=== PATIENT | female | born 1955 | race Caucasian/White ===

== ENCOUNTER 2016-12-15 15:31 | Emergency (ER) | payer OTHER ==
[~2016-12-15] VITALS: Ht 162.6 cm; Wt 59.0 kg
--- NOTE | 2016-12-15 16:44 | RADIOLOGY REPORT ---
EXAMINATION: XR ANKLE, LEFT CLINICAL INFORMATION: Fall, pain COMPARISON: None TECHNIQUE: AP, lateral, and mortise views of the left ankle. FINDINGS: There is an acute oblique nondisplaced fracture of the distal fibula. Acute transverse nondisplaced fracture of the medial malleolus also present. There is mild asymmetry of the talo tibial joint. Soft tissue swelling around the ankle joint noted. IMPRESSION: Acute nondisplaced transverse fracture of the medial malleolus and acute oblique nondisplaced fracture of the distal fibula with suggestion of dislocation at the ankle mortise.
--- NOTE | 2016-12-15 17:01 | ED PEDIATRIC TRAUMA ---
History of Present Illness General Chief Complaint: Lower Extremity Injury Stated Complaint: TWISTED ANKLE, LEFT ANKLE PAIN Source: patient, family Exam Limitations: no limitations Vital Signs & Intake/Output Vital Signs & Intake/Output Vital Signs Date Time Temp Pulse Resp B/P B/P Pulse O2 O2 Flow FiO2 Mean Ox Delivery Rate 12/15 2024 98.0 85 18 134/70 99 Room Air Room Air 12/15 1814 98.2 84 17 142/70 100 Room Air 12/15 1752 Room Air 12/15 1538 98.6 94 18 182/79 98 Room Air ED Intake and Output 12/16 0000 12/15 1200 Intake Total 120 Output Total Balance 120 Intake, Oral 120 Patient 130 lb Weight Weight Reported by Patient Measurement Method Allergies Coded Allergies: venom-honey bee (SWELLING AT SITE 12/15/16) Reconcile Medications Ondansetron (Zofran Odt) 4 MG TAB.RAPDIS 1 TAB SL TID NAUSEA AND VOMITING Oxycodone HCl 5 MG CAPSULE 1 CAP PO 4XDP Ankle Fracture Triage Note: 61 YO FEMALE TO TRIAGE C/O TRIP AND FALL INJURING L ANKLE. ANKLE WRAPPED AND ICE APPLIED Triage Nurses Notes Reviewed? yes HPI: 61 yo F presenting with left ankle pain s/p injury. Patient was walking, mis- step off of curb, acute onset pain in left ankle with cracking senation, unable to bear weight on ankle since that time, no motor or sensory deficits. Denies fall, head/neck trauma/pain, LOC, focal neurologic Sx. 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 No Psychosocial History Child's primary language? Pashto Family History Hx Contributory? No (CANDIS LOPEZ,TULIO) Review of Systems Review of Systems Constitutional: Reports: no symptoms. EENTM: Reports: no symptoms. Respiratory: Reports: no symptoms. Cardiovascular: Reports: no symptoms. GI: Reports: no symptoms. Genitourinary: Reports: no symptoms. Musculoskeletal: Reports: joint pain, joint swelling. Skin: Reports: no symptoms. Neurological/Psychological: Reports: no symptoms. Hematologic/Endocrine: Reports: no symptoms. Immunologic/Allergic: Reports: no symptoms. All Other Systems: Reviewed and Negative (CANDIS LOPEZ,TULIO) Physical Exam Physical Exam General Appearance: active, mild distress Head: atraumatic, normal appearance Neck: normal inspection, supple Respiratory: normal breath sounds Cardiovascular: normal peripheral pulses, regular rate, rhythm Gastrointestinal: non-tender, soft Comments: HEENT: Atraumatic C-spine: No bony midline c-spine TTP Left Ankle: TTP with swelling over medial and lateral malleolus, 2+ DP/PT pulses , no motor or sensory deficits (TULIO CHIRINOS MD) Progress Differential Diagnosis: Soft tissue injury, Fracture, Dislocation Plan of Care: Orders Procedure Date/time Status Durable Medical Equipment 12/15 1950 Active PARTIAL THROMBOPLASTIN TIME 12/15 1702 Complete PROTHROMBIN TIME 12/15 1702 Complete CBC WITHOUT DIFFERENTIAL 12/15 1702 Complete BASIC METABOLIC PANEL 12/15 1702 Complete EKG 12/15 1702 Active TYPE & SCREEN (NOT X-MATCH) 12/15 1702 Complete Current Medications Sig/Moni Start time Last Medication Dose Stop Time Status Admin Ondansetron HCl 4 MG ONCE ONE 12/15 1699 CAN (Zofran) 12/15 1700 Oxycodone HCl 5 MG ONCE ONE 12/15 1699 CAN (Roxicodone) 12/15 170 Laboratory Tests 12/15/16 1730: Anion Gap 13, Estimated GFR > 60, BUN/Creatinine Ratio 16.7, Glucose 101 H, Calcium 9.7, PT 11.8, INR 1.13, APTT 34, CBC w Diff NO MAN DIFF REQ, RBC 4.61, MCV 94.1, MCH 31.7 H, RDW 13.2, MPV 7.2 L, Gran % 77.3 H, Lymphocytes % 13.9 L, Monocytes % 6.6, Eosinophils % 1.8, Basophils % 0.4, Absolute Granulocytes 5.5, Absolute Lymphocytes 1.0 L, Absolute Monocytes 0.5, Absolute Eosinophils 0.1, Absolute Basophils 0, PUBS MCHC 33.6 Physician MDM: 61 yo F presenting with left ankle pain s/p fall. VSS, exam as above. DDx: Sprain/Strain, dislocation, fracture. Morphine for pain. Left ankle XR with bimalleolar fracture. Discussed with Dr. Madsen (orthopedics construction safety consultant), reccomended U-splint, NWB, pre-op labs, will evaluate tomorrow in office for further management. U-splint applied with unchanged post-procedure exam. D/Sam with crutches and return to care precautions, plan to f/u with Dr. Madsen tomorrow for further management. (CANDIS LOPEZ,TULIO) Departure Departure Disposition: HOME OR SELF CARE Condition: Stable Clinical Impression Primary Impression: Bimalleolar fracture of left ankle Referrals: JARRED LOPEZ,PORSCHE Additional Instructions: Take ibuprofen or tylenol for mild-moderate pain. Take oxycodone for severe pain. Take zofran for nausea associated with oxycodone. Keep cast in place, use crutches, do not bear weight on left foot. Follow up with Orthopedics tomorrow ([facility], Dr. Madsen or Dr. Valladares). Return to the ED for any new, worsening, or concerning symptoms. Departure Forms: Customer Survey General Discharge Information Prescriptions: Current Visit Scripts Oxycodone HCl 1 CAP PO 4XDP #20 CAP Ondansetron (Zofran Odt) 1 TAB SL TID #20 TAB (CANDIS LOPEZ,TULIO) Resident Co-Sign Statement Statement: ED Attending supervision documentation- [] I saw and evaluated the patient. I have also reviewed all the pertinent lab results and diagnostic results. I agree with the findings and the plan of care as documented in the Resident's documentation. [X] I have reviewed the ED Record and agree with the Resident's documentation. [] Additions or exceptions (if any) to the Resident's note and plan are summarized below: [] (GIRMA DOMÍNGUEZ DO
[2016-12-15 17:57] LABS: ABSOLUTE BASOPHIL COUNT 0 /CUMM (0.0-0.2); ABSOLUTE EOSINOPHIL COUNT 0.1 /CUMM (0.0-0.7); ABSOLUTE GRANULOCYTE CT 5.5 /CUMM (1.4-6.5); ABSOLUTE MONOCYTE COUNT 0.5 /CUMM (0.10-0.60); BASOPHIL % 0.4 % (0.0-2.0); EOSINOPHIL % 1.8 % (0-5); GRANULOCYTE % 77.3 % (42.2-75.2); HEMATOCRIT 43.4 % (37-47); MEAN CORPUSCULAR HGB 31.7 PG (27.0-31.0); MEAN CORPUSCULAR HGB CONC 33.6 G/DL (33.0-37.0); MEAN CORPUSCULAR VOLUME 94.1 FL (81.0-99.0); MEAN PLATELET VOLUME 7.2 FL (7.4-10.4); PLATELET COUNT 202 /CUMM (130-400); RBC DISTRIBUTION WIDTH 13.2 % (11.5-14.5); RED BLOOD CELL CT 4.61 /CUMM (4.20-5.40); WHITE BLOOD CELL COUNT 7.1 /CUMM (4.8-10.8)
[2016-12-15] MEDS ORDERED: OXYCODONE HCL5 M2 PO (19:55)
[2016-12-15] MEDS ORDERED: ZOFRAN ODT4 M1 SL (19:55)
[2016-12-15 20:25] VITALS: BP 134/70
[2016-12-15 20:26] LABS: PT 11.8 SEC (9.4-12.5); PTT 34 SEC (25-37)
== END 2016-12-15 20:26 ==
LOC: ERH 15:31
PROVIDERS: Student in an Organized Health Care Education/Training Program
DX: S82.842A Displaced bimalleolar fracture of left lower leg, initial encounter for closed fracture (principal); W18.09XA Striking against other object with subsequent fall, initial encounter; Y93.01 Activity, walking, marching and hiking; Y92.9 Unspecified place or not applicable
CPT/HCPCS: 73610-LT; 93005; 93010; 96374; 96375; J2405